=== PATIENT | male | born 1980 | race Caucasian/White ===

== ENCOUNTER 2020-09-21 14:00 | Emergency (ER) | payer OTHER ==
[~2020-09-21] VITALS: Ht 182.9 cm; Wt 82.5 kg
[~2020-09-21 14:00] MED LIST: ELIQ5TAB PO; HYDR-3713 PO; LOVE1INJ SC
--- OUTSIDE RECORDS SUMMARY | 2020-09-21 14:09 | CCD ---
Author Author [facility] Organization [facility] Address Unknown Phone Unavailable Care Team Providers Care Plastic Outfitter Name Role Phone Kaitlin Gutierrez PA-C Unavailable Unavailable BrendaKaitlin PA-C Unavailable Unavailable BrendaKaitlin PA-C Unavailable Unavailable BrendaKaitlin PA-C Unavailable Unavailable BrendaKaitlin PA-C Unavailable Unavailable BrendaKaitlin PA-C Unavailable Unavailable BrendaKaitlin PA-C Unavailable Unavailable BrendaKaitlin PA-C Unavailable Unavailable BrendaKaitlin PA-C Unavailable Unavailable Brenda, Kaitlin Gandhi PA-C Unavailable Unavailable BrendaKaitlin PA-C Unavailable Unavailable UNKNOWN, [facility] Unavailable Unavailable Makenzie RUBIO MD Unavailable Unavailable Makenzie RUBIO MD Unavailable Unavailable Makenzie RUBIO MD Unavailable Unavailable Makenzie RUBIO MD Unavailable Unavailable Makenzie RUBIO MD Unavailable Unavailable Makenzie RUBIO MD Unavailable Unavailable Makenzie RUBIO MD Unavailable Unavailable Makenzie RUBIO MD Unavailable Unavailable Makenzie RUBIO MD Unavailable Unavailable Makenzie RUBIO MD Unavailable Unavailable Makenzie RUBIO MD Unavailable Unavailable Makenzie RUBIO MD Unavailable Unavailable Makenzie RUBIO MD Unavailable Unavailable Makenzie RUBIO MD Unavailable Unavailable Makenzie RUBIO MD Unavailable Unavailable Makenzie RUBIO MD Unavailable Unavailable Makenzie RUBIO MD Unavailable Unavailable Makenzie RUBIO MD Unavailable Unavailable Makenzie RUBIO MD Unavailable Unavailable Makenzie RUBIO MD Unavailable Unavailable Makenzie RUBIO MD Unavailable Unavailable Makenzie RUBIO MD Unavailable Unavailable Makenzie RUBIO MD Unavailable Unavailable Makenzie RUBIO MD Unavailable Unavailable Makenzie RUBIO MD Unavailable Unavailable Makenzie RUBIO MD Unavailable Unavailable Makenzie RUBIO MD Unavailable Unavailable Makenzie RUBIO MD Unavailable Unavailable RUBIO, C VIK MD Unavailable Unavailable RUBIO, C VIK MD Unavailable Unavailable RUBIO, C VIK MD Unavailable Unavailable RUBIO, C VIK MD Unavailable Unavailable RUBIO, C VIK MD Unavailable Unavailable RUBIO, C VIK MD Unavailable Unavailable RUBIO, C VIK MD Unavailable Unavailable RUBIO, C VIK MD Unavailable Unavailable RUBIO, C VIK MD Unavailable Unavailable RUBIO, C VIK MD Unavailable Unavailable RUBIO, C VIK MD Unavailable Unavailable RUBIO, C VIK MD Unavailable Unavailable RUBIO, C VIK MD Unavailable Unavailable RUBIO, C VIK MD Unavailable Unavailable RUBIO, C VIK MD Unavailable Unavailable RUBIO, C VIK MD Unavailable Unavailable RUBIO, C VIK MD Unavailable Unavailable RUBIO, C VIK MD Unavailable Unavailable RUBIO, C VIK MD Unavailable Unavailable RUBIO, C VIK MD Unavailable Unavailable RUBIO, C VIK MD Unavailable Unavailable RUBIO, C VIK MD Unavailable Unavailable RUBIO, C VIK MD Unavailable Unavailable RUBIO, C VIK MD Unavailable Unavailable RUBIO, C VIK MD Unavailable Unavailable RUBIO, C VIK MD Unavailable Unavailable RUBIO, C VIK MD Unavailable Unavailable RUBIO, C VIK MD Unavailable Unavailable RUBIO, C VIK MD Unavailable Unavailable RUBIO, C VIK MD Unavailable Unavailable RUBIO, C VIK MD Unavailable Unavailable RUBIO, C VIK MD Unavailable Unavailable RUBIO, C VIK MD Unavailable Unavailable RUBIO, C VIK MD Unavailable Unavailable Re-disclosure Warning The records that you are about to access may contain information from federally-assisted alcohol or drug abuse programs. If such information is present, then the following federally mandated warning applies: This information has been disclosed to you from records protected by federal confidentiality rules (42 CFR part 2). The federal rules prohibit you from making any further disclosure of this information unless further disclosure is expressly permitted by the written consent of the person to whom it pertains or as otherwise permitted by 42 CFR part 2. A general authorization for the release of medical or other information is NOT sufficient for this purpose. The Federal rules restrict any use of the information to criminally investigate or prosecute any alcohol or drug abuse patient.The records that you are about to access may contain highly sensitive health information, the redisclosure of which is protected by Article 27-F of the [facility] Public Health law. If you continue you may have access to information: Regarding HIV / AIDS; Provided by facilities licensed or operated by the [facility] Office of Mental Health; or Provided by the [facility] Office for People With Developmental Disabilities. If such information is present, then the following [facility] mandated warning applies: This information has been disclosed to you from confidential records which are protected by state law. State law prohibits you from making any further disclosure of this information without the specific written consent of the person to whom it pertains, or as otherwise permitted by law. Any unauthorized further disclosure in violation of state law may result in a fine or penitentiary sentence or both. A general authorization for the release of medical or other information is NOT sufficient authorization for further disc losure. Encounters Encounter Providers Location Date Indications Data Source(s ) Outpatient Attender: VIK RUBIO MD 09/30/2020 12:00:00 AM [facility] Emergency Attender: Hiram SANCHEZCConsultant: GANGA Freed NKNOOBI 09/17/2020 04:42:00 PM EST - 09/17/2020 07:08:00 PM [facility] Patient discharged. Medications Medication Brand Name Start Date Product Form Dose Route Admi nistrative Instructions Pharmacy Instructions Status Indications Reaction Description Data Source(s) 5-325 mg 09/20/2020 12:00:00 AM EST tablet 4 TAKE ONE TABLET BY MOUTH EVERY 6 HOURS NEEDED FOR PAIN. MAX DAILY GONCALVES=4 TABLETS TAKE ONE TABLET BY MOUTH EVERY 6 HOURS NEEDED FOR PAIN. MAX DAILY GONCALVES=4 TABLETS SOLD: 09/20/2020 [facility] 40 mg/0.4 mL 09/20/2020 12:00:00 AM EST syringe 0 INJECT 80 MG SUBCUTANEOUSLY ONCE INJECT 80 MG SUBCUTANEOUSLY ONCE SOLD: 09/20/2020 [facility] Insurance Providers Payer name Policy type / Coverage type Policy ID Covered alliance party ID Covered alliance party's relationship to byers Policy Byers Plan Information [facility] [id number] SP [id number] [facility] HUMANA - O/P [id number] 18 [id number] [facility] ACTIVE DUTY [id number] SP [id number] Results ID Date Data Source [id number] 09/20/2020 01:37:00 PM [facility] [address] [place] [address] PHONE: [phone] FAX: [phone] Name .................. : KINJAL HOLLIS S Acct Number.................. : [id number] ROOM. ................. : TR-1A MR Number ................... : [id number] Stay type ............. : E/R Discharge Date......... ... : 09/17/20 Admit Date ....... .. : 09/17/20 Admit Phys .................... : BRENDA RM Date of ....... : 1980 Family Phys ................... : UNKNOWN CO Phone .................. : [phone] Age ................................ : 40 Film# .................. .:[id number] Sex ................................. : M Unsigned transcriptions are preliminary reports and do not represent a medical or legal document [place] [id number] COMPLETE:09/17/20 21:03 BA 4724 Reason(s): known DVT R post calf, on Eliquis, increased RLE pain RIGHT LOWER EXTREMITY DUPLEX DOPPLER ULTRASOUND: INDICATION: Known right calf DVT, on Eliquis with increased right lower extremity pain. FINDINGS: There is normal compressibility, augmentation and flow in the right common femoral and superficial femoral veins. The right popliteal vein demonstrates nearly occlusive thrombus that extends to the peritoneal trunk and posterior tibial vein and peroneal vein. IMPRESSION: Nearly occlusive thrombus from the popliteal vein to the calf veins. According to prior report, there was popliteal thrombus on outside imaging from [facility]. I am unsure if the extension of thrombus into the calf veins was present before or is new. There is no proximal extension past the popliteal vein. Electronically Reviewed and Signed By Levi Mena M.D. , 09/20/20 13:37, [place] Transcribe Initials: DZ , Transcribe Date: 09/17/20 22:52, Dictation Date: Copy for: BRENDA Madrigal via fax Copy for: EMERGENCY DEPT via modem Copy for: 710 MED REC DISCHARGED Page 1 of 1 Name Value Range Interpretation Code Description Data Virgen rce(s) Supporting Document(s) ID Date Data Source [id number] 09/20/2020 01:37:00 PM EST [facility] [address] [place] [address] PHONE: [phone] FAX: [phone] Name .................. : KINJAL OBRIENBASIL Whitman Acct Number.................. : [id number] ROOM. ................. : TR-1A MR Number ................... : [id number] Stay type ............. : E/R Discharge Date......... ... : 09/17/20 Admit Date ....... .. : 09/17/20 Admit Phys .................... : BRENDA RM Date of ....... : 1980 Family Phys ................... : UNKNOWN CO Phone .................. : [phone] Age ................................ : 40 Film# .................. .:[id number] Sex ................................. : M Unsigned transcriptions are preliminary reports and do not represent a medical or legal document TIBIA-FIBULA AP & LAT RT [id number] COMPLETE:09/17/20 19:02 [facility] 4725 Reason(s): Lower Leg Pain RIGHT TIBIA AND FIBULA X-RAY: INDICATION: Lower leg pain. FINDINGS: There is normal alignment and position of the bones of the right lower leg. No bony abnormalities are identified. IMPRESSION: Unremarkable right lower leg. The ankle is not adequately visualized and if there is clinical concern for an injury at the ankle, an ankle series should be considered. Examination dictated by COLT Johnson. Examination was reviewed with Levi Mena MD, radiologist at the time of this dictation. Electronically Reviewed and Signed By Levi Mena M.D. , 09/20/20 13:37, [place] Transcribe Initials: KIRSTEN , Transcribe Date: 09/17/20 22:47, Dictation Date: Copy for: BRENDA Madrigal via fax Copy for: EMERGENCY DEPT via mode Copy for: 710 MED REC DISCHARGED Page 1 of 1 Name Value Range Interpretation Code Description Data Virgen rce(s) Supporting Document(s) ID Date Data Source [id number] 09/17/2020 04:42:00 PM EST [facility] 1 OrderSheet [facility] Emergency Department [address] [place] [address] Phone #: [phone]- [phone] 09/17/2020 16:28 Patient: HOLLIS LAYTON Sex: M : 1980 Age: 40yWEIGHT:79.3 kg (S) HEIGHT:72 inches (S) BMI:23.7ALLERGIES: PenicillinsCHIEF COMPLAINT: swelling, painDIAGNOSIS: Deep venous thrombosisLAB ORDERSOrder Description Priority Entered Acknowledged InitialedCBC w Diff STAT 16:48 09/17/2020 16:52 Kayla GREGORY; Amberly RNCMP STAT 16:48 09/17/2020 16:52 Kayla GREGORY; Amberly RNPT/PTT STAT 16:48 09/17/2020 16:52 Kayla GREGORY; Amberly RNCOVID-19 CAH (Not STAT 18:39 09/17/2020 Cancelled: Patient Refusal 19:13 DorisSymptomatic as Hiram GREGORY; Amberly RNDefined by [facility])(09/17/20) (Not FirstTest) (Hospitalized)(Not ) (NotResident inCongregate CareSetting) (NotEmployed inHealthcare Setting)DIAGNOSTIC STUDY ORDERSOrder Description Priority Entered Acknowledged InitialedUS Lower Ext STAT 16:48 09/17/2020 17:16 DorisVenous Right Hiram GREGORY; Amberly RN(Oxygen?(No)) Reason for Study: known DVT R post calf, on eliquis, increased RLE painTibia Fibula AP And STAT 16:49 09/17/2020 16:53 DorisLAT Right Hiram GREGORY; Amberly RN(Oxygen?(No)) Reason for Study: Lower Leg PainMEDICATION/IV/DRIP/FLUID ORDERSOrder Description Priority Entered Acknowledged Initialed 2 OrderSheet [facility] Emergency Department [address] [place] [address] Phone #: ext- [phone] 09/17/2020 16:28 Patient: HOLLIS LAYTON Sex: M : 1980 Age: 40yVicodin (5-325mg) 18:21 09/17/2020 Cancelled: Patient Refusal 18:36 DorisPO 1 tab (HIGH Hiram GREGORY; Amberly RNALERTMEDICATION)Percocet PO 1 tab 18:36 09/17/2020 18:39 Kayla(HIGH ALERT Hiram GREGORY; Amberly RNMEDICATION)GENERAL ORDERSOrder Description Priority Entered Acknowledged Initialed[Electronically signed by Kayla Gaming RN (19:14 09/17/2020)][Electronically signed by Hiram Gutierrez (19:17 09/17/2020)][Electronically locked by Kayla Gaming RN (19:14 09/17/2020)] Name Value Range Interpretation Code Description Data Virgen rce(s) Supporting Document(s) ID Date Data Source [id number] 09/17/2020 04:42:00 PM [place] [address] Medication Reconciliation Report [facility] Emergency Department [address] [place] [address] Phone #: ext- [phone] 09/17/2020 16:28 Patient: HOLLIS LAYTON Sex: M : 1980 Age: 40yWeight: 79.3 kgHeight/Length: 72 in.BMI: 23.7ALLERGIES: PenicillinsThe patient's Home Medications are listed below:THE FOLLOWING MEDICATIONS NEED TO BE RECONCILED: Eliquis Oral (5 mg) 2 tablets, dailyThe source(s) of the original Home Medication information:Not obtained.The following Medications were given to the patient in the Emergency Department:Percocet [PO] PO 1 tab, administered: 18:39 09/17/2020The following Medications were prescribed to the patient:None. Name Value Range Interpretation Code Description Data Virgen rce(s) Supporting Document(s) ID Date Data Source [id number] 09/17/2020 04:42:00 PM EST [facility] 1 Medication Administration Record [facility] Emergency Department [address] [place] [address] Phone #: ext- [phone] 09/17/2020 16:28 Patient: HOLLIS LAYTON Sex: M : 1980 Age: 40yWeight: 79.3 kgHeight/Length: 72 inBMI: 23.7ALLERGIES: Penicillins Date/Time Medication Administered Medication OrderedGiven PERCOCET [PO] Percocet PO 1 tab (HIGH ALERT18:39 09/17/2020 (OXYCODONE- ACETAMINOPHEN) MEDICATION)Kayla Gaming RN Dose: 1 tab 5/325 mg Tablets PO Name Value Range Interpretation Code Description Data Virgen rce(s) Supporting Document(s) ID Date Data Source [id number] 09/17/2020 04:42:00 PM EST [facility] 1 General Instructions [facility] Emergency Department [address] [place] [address] Phone #: ext- [phone] 09/17/2020 16:28 Patient: HOLLIS LAYTON Sex: M : 1980 Age: 40yChronic deep venous thrombosis of the right popliteal vein (? worsening DVT, and new DVT on eliquis, hxFactor V Leyden disease).INSTRUCTIONSAMA warnings: Time of assessment: 18:55 09/17/2020. Oriented to person, place, and time. Givesappropriate answers and rational expl anation of refusal of care. No indication for involuntary commitmentis present, signs of psychosis, auditory hallucinations, delusional thinking or suicidal ideations. No slurredspeech, tangential thinking, visual hallucinations or homicidal ideations. Speaks coherently. Abstractthinking intact.Clinical Impression: the patient has the capacity to make decisions regarding the medical care offered.Relevant issues reviewed and discussed with the patient. Aware of suspected diagnosis suggested byscreening exam (DVT RLE). The suspected diagnosis, based upon the initiated medical screening exam,is ? worsening and possibly new DVT RLE and has been discussed with the patient. Acknowledgesunderstanding of the reasons for recommendations regarding medical treatment, medical tests,procedures, admission to facility, transfer to other medical facility and further observation. Therecommended medical care being refused is transfer for evaluation of ? worsening and new DVT RLE andhas been discussed with the patient. The risks of refusing recommended care that were disclosed andacknowledged are , quadriplegia, paraplegia, permanent mental impairment, loss of limb, loss ofsexual function and loss of current lifestyle. Discharge instructions were provided to the patient.REFUSAL OF CARE STATEMENT (patient to review and sign in discharge instructions):I have read this paragraph. I understand that a doctor at this hospital wants to give me certain medicalcare. The doctor explained that care to me, and I understand what that care is. The doctor also explainedto me what could happen to me if I leave here without having that care, and I understand what he said. Iknow that I am welcome to return to this hospital at any time to receive the recommended care or any othercare that I may need at any time, regardless of my ability to pay for such care.(Electronically signed by COLT Galo 09/17/2020 19:17) 2 General Instructions [facility] Emergency Department [address] [place] [address] Phone #: ext- [phone] 09/17/2020 16:28 Patient: HOLLIS LAYTON Sex: M : 1980 Age: 40y Name Value Range Interpretation Code Description Data Virgen rce(s) Supporting Document(s) ID Date Data Source [id number] 09/17/2020 04:42:00 PM EST [facility] 1 Clinical Report - Nurses [facility] Emergency Department [address] [place] [address] Phone #: ext- [phone] 09/17/2020 16:28 Patient: HOLLIS LAYTON Sex: M : 1980 Age: 40yTRIAGEArrived by private vehicle. Historian: patient.Acuity: LEVEL 3.Chief Complaint: RIGHT LOWER EXTREMITY PAIN and SWELLING.No injury occurred. Onset. (1 months ago). ( Pt states he was diagnosed with a DVT in his right leg on08/13/20 at [facility], was put on eliquis 10 mg daily, now he voices that 3 days ago the pain has increasedmuch and is in distress).Treatment PRESCRIPTION CLERK:(eliquis 10 mg 0530).SEPSIS SCREEN: SIRS SCREEN NEGATIVE. SEPSIS SCREEN NEGATIVE. No suspected or c onfirmedsigns of infection present.TAL COMA SCORE: 15- eyes open- spontaneous (4); best verbal response- oriented (5); bestmotor response- obeys commands (6). --16:34 09/17/20 Clemente Hernandez RN16:29 09/17/20. BP: 138/84. MAP: 102. HR: 77. RR: 16. O2 saturation: 100% on room air. Temp: 98.7 F(oral). Pain level now: 05/08. --16:34 09/17/20 Clemente Hernandez RN.Weight: 79.3 kg stated. Height/Length: 72 inches Per Patient. BMI: 23.7. --16:29 09/17/20 Clemente Hernandez RN.MedicationsEliquis Oral (Tablet 5 mg) 2 tablets, daily. --16:31 09/17/20 Clemente Hernandez RN.AllergiesPenicillins.(hives, itching) --16:31 09/17/20 Kayla Gaming RNThe following entry was struck and corrected by Kayla Gaming RN, 16:46 (09/17/20) Reason forcorrection - other(correction). Penicillins. --16:31 09/17/20 Clemente Hernandez RN .PROBLEMS:DVT - Deep Venous Thrombosis: Onset 08/12/2020.Factor V Leiden mutation. --16:46 09/17/20 Kayla Gaming RNThe following entry was modified by Kayla Gaming RN, 16:46 09/17/20 2 Clinical Report - Nurses [facility] Emergency Department [address] [place] [address] Phone #: ext- [phone] 09/17/2020 16:28 Patient: HOLLIS LAYTON Sex: Jhon : 1980 Age: 40y DVT - Deep Venous Thrombosis. --16:31 09/17/20 Clemente Hernandez RN. ADDITIONAL SURGERIES: no known surgeries. History PAST MEDICAL HX: Tetanus status: up-to-date. Immunizations: up-to-date. SOCIAL HX: Never smoker. Occasional alcohol use. No drug use. He was offered HIV testing but declined and hepatitis C testing but declined. He has not traveled outside the [place] Infectious disease exposure: No infectious disease exposure. The patient was not exposed to Coronavirus. SELF HARM ASSESSMENT: Self harm assessment was performed. The patient answered "no" to the question(s) "Have you recently felt down, depressed, or hopeless?", "Do you have thoughts of harming or killing y ourself?", "Do you have a plan for harming or killing yourself?", "Have you recently had thoughts about harming or killing others?", "Do you have any dangerous items in your possession?", "Have you noticed less interest or pleasure in doing things?", "Are you here because you tried to hurt yourself?" and "Have you ever tried to hurt yourself before today?". ABUSE ASSESSMENT: No report of abuse. NUTRITIONAL RISK ASSESSMENT: The nutritional risk assessment revealed no deficiencies. FUNCTIONAL ASSESSMENT: Functional assessment: no impairments noted. LEARNING NEEDS ASSESSMENT: The learning needs assessment revealed no barriers. FALL RISK ASSESSMENT: Fall risk assessment completed. No risk factors identified. SKIN INTEGRITY ASSESSMENT: Skin integrity risk assessment completed. No skin integrity risk identified. --16:34 09/17/20 Clemente Hernandez RN. Interventions To treatment room. --16:34 09/17/20 Clemente Hernandez RN.PHYSICAL PUVJYPNNTB91:40 09/17/20. Ambulatory to room.GENERAL / NEURO / PSYCH: Oriented X 4. Alert. Appears in no acute distress.EXTREMITIES: Extremity pulses are within normal limits. Extremities exhibit normal ROM.Neuro-vascular status intact to the extremity. No lower extremity edema. Normal gait. Right leg:tenderness.SKIN: Skin intact. Skin is warm and dry. --16:44 09/17/20 Kayla Gaming RN.NURSING PROGRESS NOTES16:44 09/17/20. Patient gowned. Two patient identifiers checked. Call light placed in reach. Side rails 3 Clinical Report - Nurses [facility] Emergency Department [address] [place] [address] Phone #: ext- [phone] 09/17/2020 16:28 Patient: HOLLIS LAYTON Sex: M : 1980 Age: 40y up. Bed placed in lowest position. Brakes of bed on. Patient ready for evaluation- PA notified. --16:44 09/17/20 Kayla Gaming RN 16:54 09/17/20. Patient transported to radiology by wheelchair with mask and vasc tech. --16:54 09/17/20 Kayla Gaming RN 16:58 09/17/20. Patient returned from radiology by wheelchair with mask and vasc tech. --16:58 09/17/20 Kayla Gaming RN 17:30 09/17/20. ( Bedside Ultrasound being performed). --18:06 09/17/20 Kayla Gaming RN 18:02 09/17/20. ( Bedside Ultrasound completed). --18:06 09/17/20 Kayla Gaming RN 18:10 09/17/20. GENERAL / NEURO / PSYCH: The patient reports pain that is located in the right lower leg is still present and worsening and currently severe. --19:08 09/17/20 Kayla Gaming RN 18:39 09/17/2020 Percocet (oxyCODONE-Acetaminophen) PO 5/325 mg Tablets 1 tab given. Allergies verified and confirmed 5 rights. Information reviewed with patient including reason for taking this medication, signs of allergic reaction, precautions and sedative warning. Verbalizes understanding. --18:39 09/17/20 Kayla Gaming RN 19:08 09/17/2020 Percocet PO Response: no adverse reaction pain is worsening. Symptoms have gotten worse. The patient feels worse. --19:12 09/17/20 Kayla Gaming RN.DISPOSITION / DISCHARGE 19:08 09/17/20. The patient left the Emergency Department against medical advice and without completion of treatment; (refused transfer). The patient appears to be alert, oriented x4, coherent and in no acute distress. The patient notified staff prior to leaving the department and stated is leaving (refusing transfer to [facility]). Notified the ED physician of patient departure. Prior to leaving, he was advised to return if needed. He was informed of the risks of leaving and verbalized un derstanding of these risks. Patient signed form prior to leaving. He left the Emergency Department ambulatory and via private vehicle. --19:11 09/17/20 Kayla Gaming RN 19:05 09/17/20. BP: 136/86. MAP: 102. HR: 64. RR: 14. O2 saturation: 100%. Temp: 98.7 F. Pain level now: 05/08. --19:11 09/17/20 Kayla Gaming RN.Locked/Released at 09/17/2020 19:14 by Kayla Gaming RN 4 Clinical Report - Nurses [facility] Emergency Department [address] [place] [address] Phone #: ext- [phone] 09/17/2020 16:28 Patient: HOLLIS LAYTON Sex: M : 1980 Age: 40y Name Value Range Interpretation Code Description Data Virgen rce(s) Supporting Document(s) ID Date Data Source [id number] 09/17/2020 04:42:00 PM EST [facility] 1 Clinical Report - Physicians/Mid Levels [facility] Emergency Department [address] [place] [address] Phone #: ext- [phone] 09/17/2020 16:28 Patient: HOLLIS LAYTON Sex: M : 1980 Age: 40y Time Seen: 16:32 09/17/2020. Arrived- By private vehicle. Historian- patient. Disposition decision: 18:55 09/17/2020.HISTORY OF PRESENT ILLNESS Chief Complaint: LOWER EXTREMITY PAIN and SWELLING. This started several days ago and 1 mo ago; Seen at [facility] 1 mo ago for acute onset R calf pain, states US there found DVT, placed on eliquis 10 mg PO daily, being worked up by Hem/onc and states he has Factor V Leyden disease, states he has increased pain to R posterior calf region over past several days. Compliant with eliquis. No chest pain or SOB. Severity is described as being moderate. It has become recently worse. The quality is noted to be aching. No radiation. Modifying factors- worsened by walking. Symptoms located in the area of the right leg. The patient has not had redness. No swelling, bladder dysfunction, bowel dysfunction, sensory loss or motor loss. He has had difficulty walking. Patient denies an injury. Similar symptoms previously. Patient has had similar symptoms once. Recent medical care: The patient was seen recently at another facility in the emergency department.REVIEW OF SYSTEMSNo cough, chest pain, difficulty breathing, fever or skin rash. No enlarged lymph nodes, neck pain, backpain, headache or blurred vision. No sore throat, abdominal pain, vomiting, diarrhea or difficulty withurination. No bloody stools.PAST HISTORYSee nurses notes. Problems: DVT - Deep Venous Thrombosis. Factor V Leiden mutation. Additional Surgeries: no known surgeries. Medications: Eliquis Oral (Tablet 5 mg) 2 tablets, daily. Allergies: Penicillins.(hives, itching).SOCIAL HISTORYNever smoker. Occasional alcohol use. No drug use. No recent travel. 2 Clinical Report - Physicians/Mid Levels [facility] Emergency Department [address] [place] [address] Phone #: ext- [phone] 09/17/2020 16:28 Patient: HOLLIS LAYTON Sex: M : 1980 Age: 40yADDITIONAL NOTESThe nursing notes have been reviewed with agreement regarding the chief complaint, HPI, ROS, PMH andpatient medications and allergies.PHYSICAL EXAMVital Signs: 09/17/2020 16:29 BP: 138/84. MAP: 102. HR: 77. RR: 16. O2 saturation: 100% on room air.Temp: 98.7 F. Pain level now: 05/08. Have been reviewed as normal and appear to be correct. Bloodpressure normal. Mean arterial pressure- normal. Heart rate normal. Respiratory rate normal.Temperature normal. Oxygen saturation normal.Appearance: Alert. Oriented X3. No acute distress.Eyes: Pupils equal, round and reactive to light. Eyes normal inspection.ENT: Ears normal. Nose normal. Pharynx normal.Neck: Normal inspection. Neck supple.CVS: Normal heart rate and rhythm. Heart sounds normal.Respiratory: No respiratory distress. Painless inspiration. Breath sounds normal.Abdomen: Soft and nontender. No organomegaly.Back: Normal inspection. No tenderness. ROM normal.Skin: Skin intact. Skin warm and dry. Normal skin color. Normal skin turgor.Extremities: Right leg: moderate tendern ess located in the upper and mid leg. No erythema, swelling orecchymosis. Lower extremities exhibit normal ROM. No lower extremity edema. Extremities otherwisenegative.Gait: Gait not tested due to pain.Neuro: Oriented X 3. No motor deficit. No sensory deficit. Reflexes normal.LABS, X-RAYS, AND EKGLower Extremity Sonography: popliteal and calf vein DVT. Nearly occlusive. No direct comparison, butprevious report states prior popliteal vein DVT. Unsure if calf vein DVT is new. Study type: utilized duplexsonography. The exam was performed by a fire protection engineering technician. The study was independently viewed by me andinterpreted by the radiologist and contemporaneously by me. Interpretation time: 18:22 09/17/2020.Laboratory Tests: Laboratory tests have been ordered, with results reviewed and considered in themedical decision making process. CBC w Diff: (VICKIE: 09/17/2020 17:11) ( MsgRcvd 09/17/2020 17:28) Final results Test Result Flag Units (Reference) CBC W/AUTOMATED DIFF COMPLETE BLOOD COUNT WBC 3.8 L 10/uL (4.2 - 11.0) RBC 4.39 L 10/uL (4.50 - 6.30) HEMOGLOBIN 13.4 L g/dL (14.0 - 16.0) HEMATOCRIT 40.6 L % (41.0 - 51.0) MCV 92.5 fL (80.0 - 94.0) MCH 30.5 pg (27.0 - 34.0) MCHC 33.0 g/dL (31.0 - 36.0) RDW 13.9 % (11.5 - 14.8) PLATELETS 190 10/uL (150 - 450) MPV 8.8 fL (7.4 - 10.4) NEUT 55.8 % (37.0 - 80.0) LYMPH 34.6 % (25.0 - 40.0) 3 Clinical Report - Physicians/Mid Levels [facility] Emergency Department [address] [place] [address] Phone #: ext- [phone] 09/17/2020 16:28 Patient: HOLLIS LAYTON Sex: M : 1980 Age: 40y MONO 6.8 % (3.0 - 8.0) EOS 1.8 % (0.0 - 7.0) BASO 1.0 % (0.0 - 2.0) %IG 0.0 % (0.0 - 0.0) %NRBC 0.0 % (0.0 - 0.0) #NEUT 2.12 10/uL (2.00 - 6.90) #LYMPH 1.32 10/uL (0.60 - 3.40) #MONO 0.26 10/uL (0.00 - 0.90) #EOS 0.07 10/uL (0.00 - 0.70) #BASO 0.04 10/uL (0.00 - 0.20) #IG 0.00 10/uL (0.00 - 0.10) #NRBC 0.00 10/uL (0.00 - 0.00) MANUAL DIFF NOT INDICATED RBC MORPH NOT INDICATEDCMP: (VICKIE: 09/17/2020 17:11) ( MsgRcvd 09/17/2020 17:47) Final results Test Result Flag Units (Reference) COMPREHENSIVE METABOLIC PANEL COMPREHENSIVE METABOLIC PANEL SODIUM 136 mEq/L (134 - 153) POTASSIUM 3.5 L mEq/L (3.6 - 5.0) CHLORIDE 101 mEq/L (98 - 107) CO2 30 MEQ/L (22 - 30) GLUCOSE 191 H MG/DL (70 - 99) BUN 18 MG/DL (7 - 21) CREATININE 1.2 MG/DL (0.7 - 1.5) BUN/CREAT 15 (8 - 27) TOTAL PROTEIN 7.2 G/DL (6.3 - 8.2) ALBUMIN 4.3 G/DL (3.9 - 5.0) GLOBULIN 2.9 GM/DL (2.4 - 3.2) A/G RATIO 1.5 (0.8 - 2.0) CALCIUM 9.1 MG/DL (8.4 - 10.2) TOTAL BILI 0.8 MG/DL (0.2 - 1.3) ALKALINE PHOS 36 L U/L (38 - 126) SGOT/AST 26 U/L (5 - 40) SGPT/ALT 15 U/L (7 - 56) ANION GAP 5.0 L mmol/L (8.0 - 16.0) AGE 40 yrs NON-AA GFR >60 mL/min AFR AMER GFR >60 mL/min Male GFR Interprentation 20-49 yrs >60 mL/min Cakygs55-08 yrs >56 mL/min Normal 60-69 yrs >49 mL/min Normal 70-79yrs>42 mL/min Normal 80 and above >35 mL/min Normal Female GFRInterpretation 20-39 yrs >60 mL/min Normal 40-49 yrs >58 mL/minNormal 50-59 yrs >51 mL/min Normal 60-69 yrs >45 mL/min Debgxr38-38 yrs >39 mL/min Normal 80 and above >32 mL/min NormalPT/PTT: (VICKIE: 09/17/2020 17:11) ( MsgRcvd 09/17/2020 17:36) Final results Test Result Flag Units (Reference) PROTIME 13.2 SECONDS (11.0 - 15.5) INR 0.95 (0.93 - 1.23) PTT 27.2 SECONDS (24.8 - 36.7) \\BLDo\\INR INTERPRETATION\\BLDx\\ Therapeutic range for Coumadin andrelated oral anticoagulants. -International Normalized Ratio ( INR): 2.0 - 3.0 for VenousThrombosis, Pulmonary Embolus, Tissue heart valves, Acute VT Atrial Fibrillation, Valvular heart diseaseand recurrent Systemic Embolism. -International Normalized Ratio (INR): 2.5 - 3.5 forMechanical Prosthetic valve. 4 Clinical Report - Physicians/Mid Levels [facility] Emergency Department [address] [place] [address] Phone #: ext- [phone] 09/17/2020 16:28 Patient: HOLLIS LAYTON Sex: M : 1980 Age: 40y.PROGRESS AND PROCEDURESCourse of Care: 18:25 Sep 17 2020. ? new DVT RLE despite pt compliant with eliquis, hx factor V Leydendisease, awaiting call back from [facility] for transfer, hospitalist here [facility]. 18:45 Sep 17 2020. No call back from [facility], attempting [place]. 18:57 Sep 17 2020. Pt at this time wishes to leave AMA and proceed to [facility] himself, sates he does not want to leave his car in hospital parking lot. Explained risks of leaving AMA to include possible , pt encouraged to return to ED at earliest convenience.CLINICAL IMPRESSION Chronic deep venous thrombosis of the right popliteal vein (? worsening DVT, and new DVT on eliquis, hx Factor V Leyden disease).INSTRUCTIONS AMA warnings: Time of assessment: 18:55 09/17/2020. Oriented to person, place, and time. Gives appropriate answers and rational explanation of refusal of care. No indication for involuntary commitment is present, signs of psychosis, auditory hallucinations, delusional thinking or suicidal ideations. No slurred speech, tangential thinking, visual hallucinations or homicidal ideations. Speaks coherently. Abstract thinking intact. Clinical Impression: the patient has the capacity to make decisions regarding the medical care offered. Relevant issues reviewed and discussed with the patient. Aware of suspected diagnosis springer ggested by screening exam (DVT RLE). The suspected diagnosis, based upon the initiated medical screening exam, is ? worsening and possibly new DVT RLE and has been discussed with the patient. Acknowledges understanding of the reasons for recommendations regarding medical treatment, medical tests, procedures, admission to facility, transfer to other medical facility and further observation. The recommended medical care being refused is transfer for evaluation of ? worsening and new DVT RLE and has been discussed with the patient. The risks of refusing recommended care that were disclosed and acknowle dged are , quadriplegia, paraplegia, permanent mental impairment, loss of limb, loss of sexual function and loss of current lifestyle. Discharge instructions were provided to the patient. REFUSAL OF CARE STATEMENT (patient to review and sign in discharge instructions): I have read this paragraph. I understand that a doctor at this [facility] wants to give me certain medical care. The doctor explained that care to me, and I understand what that care is. The doctor also explained to me what could happen to me if I leave here without having that care, and I understand what he said. I know that I am welcome to return to this [facility] at any time to receive the recommended care or any other care that I may need at any time, regardless of my ability to pay for such care. 5 Clinical Report - Physicians/Mid Levels [facility] Emergency Department [address] [place] [address] Phone #: ext- [phone] 09/17/2020 16:28 Patient: HOLLIS LAYTON Sex: M : 1980 Age: 40y(Electronically signed by COLT Galo 09/17/2020 19:17) Name Value Range Interpretation Code Description Data Virgen rce(s) Supporting Document(s) ID Date Data Source [id number] 09/17/2020 05:47:00 PM EST [facility] Name Value Range Interpretation Code Description Data Virgen rce(s) Supporting Document(s) COMPREHENSIVE METABOLIC PANEL [facility] COMPREHENSIVE METABOLIC PANEL Sodium [Moles/volume] in Serum or Plasma 136 mEq/L 134 - 153 [facility] Potassium [Moles/volume] in Serum or Plasma 3.5 mEq/L 3.6 - 5.0 L [facility] Chloride [Moles/volume] in Serum or Plasma 101 mEq/L 98 - 107 [facility] Carbon dioxide, total [Moles/volume] in Serum or Plasma 30 MEQ/L 22 - 30 [facility] Glucose [Mass/volume] in Serum or Plasma 191 MG/DL 70 - 99 H [facility] BUN 18 MG/DL 7 - 21 [facility] Creatinine [Mass/volume] in Serum or Plasma 1.2 MG/DL 0.7 - 1.5 [facility] BUN/CREAT 15 8 - 27 [facility] Protein [Mass/volume] in Serum or Plasma 7.2 G/DL 6.3 - 8.2 [facility] Albumin [Mass/volume] in Serum or Plasma 4.3 G/DL 3.9 - 5.0 [facility] Globulin [Mass/volume] in Serum by calculation 2.9 GM/DL 2.4 - 3.2 [facility] A/G RATIO 1.5 0.8 - 2.0 [facility] Calcium [Mass/volume] in Serum or Plasma 9.1 MG/DL 8.4 - 10.2 [facility] Bilirubin.total [Mass/volume] in Serum or Plasma 0.8 MG/DL 0.2 - 1.3 [facility] Alkaline phosphatase [Enzymatic activity/volume] in Serum or Plasma 36 U/L 38 - 126 L [facility] Aspartate aminotransferase [Enzymatic activity/volume] in Serum or Plasma 26 U/L 5 - 40 [facility] Alanine aminotransferase [Enzymatic activity/volume] in Seru m or Plasma 15 U/L 7 - 56 [facility] Anion gap 3 in Serum or Plasma 5.0 mmol/L 8.0 - 16.0 L [facility] AGE 40 yrs [facility] al NON-AA GFR >60 mL/min [facility] ital AFR AMER GFR >60 mL/min [facility] Male GFR In terprentation 20-49 yrs >60 mL/min Normal 50-59 yrs >56 mL/min Normal 60-69 yrs >49 mL/min Normal 70-79yrs >42 mL/min Normal 80 and above >35 mL/min Normal Female GFR Interpretation 20-39 yrs >60 mL/min Normal 40-49 yrs >58 mL/min Normal 50-59 yrs >51 mL/min Normal 60-69 yrs >45 mL/min Normal 70-79 yrs >39 mL/min Normal 80 and above >32 mL/min Normal ID Date Data Source [id number] 09/17/2020 05:36:00 PM [facility] Name Value Range Interpretation Code Description [facility] Supporting Document(s) Prothrombin time (PT) 13.2 SECONDS 11.0 - 15.5 [facility] INR in Platelet poor plasma by Coagulation assay 0.95 0.93 - 1. 23 [facility] aPTT in Blood by Coagulation assay 27.2 SECONDS 24.8 - 36.7 [facility] \\BLDo\\INR INTERPRETATION\\BLDx\\ Therapeutic range for Coumadin and related oral anticoagulants. - International Normalized Ratio (INR): 2.0 - 3.0 for Venous Thrombosis, Pulmonary Embolus, Tissue heart valves, Acute VT Atrial Fibrillation, Valvular heart disease and recurrent Systemic Embolism. - International Normalized Ratio (INR): 2.5 - 3.5 for Mechanical Prosthetic valve. ID Date Data Source [id number] 09/17/2020 05:28:00 PM [facility] Name Value Range Interpretation Code Description Data [facility](s) Supporting Document(s) CBC W/AUTOMATED DIFF [facility] COMPLETE BLOOD COUNT Leukocytes [#/volume] in Blood by Automated count 3.8 10^3/uL 4.2 - 1 1.0 L [facility] Erythrocytes [#/volume] in Blood by Automated count 4.39 10^6/uL 4. 50 - 6.30 L [facility] Hemoglobin [Mass/volume] in Blood 13.4 g/dL 14.0 - 16.0 L [facility] Hematocrit [Volume Fraction] of Blood by Automated count 40.6 % 4 1.0 - 51.0 L [facility] Erythrocyte mean corpuscular volume [Entitic volume] by Auto mated count 92.5 fL 80.0 - 94.0 [facility] Erythrocyte mean corpuscular hemoglobin [Entitic mass] by Automated count 30.5 pg 27.0 - 34.0 [facility] Erythrocyte mean corpuscular hemoglobin concentration [Mass/volume] by Automated count 33.0 g/dL 31.0 - 36.0 [facility] Erythrocyte distribution width [Ratio] by Automated count 13.9 % 11.5 - 14.8 [facility] Platelets [#/volume] in Blood by Automated count 190 10^3/uL 150 - 45 0 [facility] Platelet mean volume [Entitic volume] in Blood by Automated count 8.8 fL 7.4 - 10.4 [facility] Neutrophils/100 leukocytes in Blood by Automated count 55.8 % 37. 0 - 80.0 [facility] Lymphocytes/100 leukocytes in Blood by Manual count 34.6 % 25.0 - 40.0 [facility] Monocytes/100 leukocytes in Blood by Automated count 6.8 % 3.0 - 8.0 [facility] Eosinophils/100 leukocytes in Blood by Automated count 1.8 % 0.0 - 7.0 [facility] Basophils/100 leukocytes in Blood by Automated count 1.0 % 0.0 - 2.0 [facility] %IG 0.0 % 0.0 - 0.0 [facility] %NRBC 0.0 % 0.0 - 0.0 [facility] al Neutrophils [#/volume] in Blood by Automated count 2.12 10^3/uL 2.00 - 6.90 [facility] Lymphocytes [#/volume] in Blood by Automated count 1.32 10^3/uL 0.60 - 3.40 [facility] Monocytes [#/volume] in Blood by Automated count 0.26 10^3/uL 0.00 - 0.90 [facility] Eosinophils [#/volume] in Blood by Automated count 0.07 10^3/uL 0.00 - 0.70 [facility] Basophils [#/volume] in Blood by Automated count 0.04 10^3/uL 0.00 - 0.20 [facility] #IG 0.00 10^3/uL 0.00 - 0.10 [facility] #NRBC 0.00 10^3/uL 0.00 - 0.00 [facility] MANUAL DIFF NOT INDICATED [facility] RBC MORPH NOT INDICATED [facility] Procedure
--- OUTSIDE RECORDS SUMMARY | 2020-09-21 14:46 | CCD ---
Author Author [facility] Organization [facility] Address Unknown Phone Unavailable Care Team Providers Care Auto Body Service Mechanic Name Role Phone Kaitlin Gutierrez PA-C Unavailable [...] is protected by Article 27-F of the [facility] Public Health law. If you continue you may have access to information: Regarding HIV / AIDS; Provided by facilities licensed or operated by the [facility] Office of Mental Health; or Provided by the [facility] Office for People With Developmental Disabilities. If such information is present, then the following [facility] mandated warning applies: This information has been [...] law may result in a fine or custodial sentence or both. A general authorization for the release of medical or other information is NOT sufficient authorization for further disc losure. Encounters Encounter Providers Location Date Indications Data Source(s ) Outpatient Attender: VIK RUBIO MD 09/30/2020 12:00:00 AM [facility] Emergency Attender: Hiram SANCHEZCConsultant: GANGA Freed NKNOOBI 09/17/2020 04:42:00 PM EST - 09/17/2020 07:08:00 PM [facility] Patient discharged. Medications Medication Brand Name Start [...] type / Coverage type Policy ID Covered constitution party ID Covered constitution party's relationship to byers Policy Byers Plan Information [facility] ACTIVE DUTY [id number] SP [id number] [facility] [id number] SP [id number] [facility] - O/P [id number] 18 [id number] Results ID Date Data Source [id number] 09/20/2020 01:37:00 PM [facility] [address] [place] [address] PHONE: [phone] FAX: [phone] Name .................. : KINJAL HOLLIS S Acct Number.................. : [id number] ROOM. ................. : TR-1A MR Number ................... : [id number] Stay type ............. : E/R Discharge Date......... ... : 09/17/20 Admit Date ....... .. : 09/17/20 Admit Phys .................... : BRENDA RM Date of ....... : 1980 Family Phys ................... : UNKNOWN CO Phone .................. : [phone] Age ................................ : 40 Film# .................. .:[id number] Sex ................................. : M Unsigned transcriptions are preliminary reports and do not represent a medical or legal document [place] [id number] COMPLETE:09/17/20 21:03 BA 4724 Reason(s): known DVT [...] was popliteal thrombus on outside imaging from [facility]. I am unsure if the extension of [...] rce(s) Supporting Document(s) ID Date Data Source [id number] 09/20/2020 01:37:00 PM EST [facility] [address] [place] [address] PHONE: [phone] FAX: [phone] Name .................. : KINJAL OBRIENBASIL Whitman Acct Number.................. : [id number] ROOM. ................. : TR-1A MR Number ................... : [id number] Stay type ............. : E/R Discharge Date......... ... : 09/17/20 Admit Date ....... .. : 09/17/20 Admit Phys .................... : BRENDA RM Date of ....... : 1980 Family Phys ................... : UNKNOWN CO Phone .................. : [phone] Age ................................ : 40 Film# .................. .:[id number] Sex ................................. : M Unsigned transcriptions are preliminary reports and do not represent a medical or legal document TIBIA-FIBULA AP & LAT RT [id number] COMPLETE:09/17/20 19:02 [facility] Reason(s): Lower Leg Pain RIGHT TIBIA [...] rce(s) Supporting Document(s) ID Date Data Source [id number] 09/17/2020 04:42:00 PM EST [facility] 1 OrderSheet [facility] Emergency Department [address] [place] [address] Phone #: koi- [phone] 09/17/2020 16:28 Patient: HOLLIS LAYTON Sex: M [...] DorisSymptomatic as Hiram GREGORY; Amberly RNDefined by [facility])(09/17/20) (Not FirstTest) (Hospitalized)(Not ) (NotResident inCongregate CareSetting) [...] Entered Acknowledged Initialed 2 OrderSheet [facility] Emergency Department [address] [place] [address] Phone #: ext- [phone] 09/17/2020 16:28 Patient: HOLLIS LAYTON Sex: M [...] rce(s) Supporting Document(s) ID Date Data Source [id number] 09/17/2020 04:42:00 PM [place] [address] Medication Reconciliation Report [facility] Emergency Department [address] [place] [address] Phone #: ext- [phone] 09/17/2020 16:28 Patient: [...] rce(s) Supporting Document(s) ID Date Data Source [id number] 09/17/2020 04:42:00 PM EST [facility] 1 Medication Administration Record [facility] Emergency Department [address] [place] [address] Phone #: ext- [phone] 09/17/2020 16:28 Patient: HOLLIS LAYTON Sex: M : 1980 Age: 40yWeight: 79.3 kgHeight/Length: 72 inBMI: 23.7ALLERGIES: Penicillins Date/Time Medication Administered Medication OrderedGiven PERCOCET [PO] Percocet PO 1 tab (HIGH ALERT18:39 09/17/2020 (OXYCODONE- ACETAMINOPHEN) MEDICATION)Kayla Gaming RN Dose: 1 tab 5/325 mg Tablets PO Name Value Range Interpretation Code Description Data Virgen rce(s) Supporting Document(s) ID Date Data Source [id number] 09/17/2020 04:42:00 PM EST [facility] 1 General Instructions [facility] Emergency Department [address] [place] [address] Phone #: ext- [phone] 09/17/2020 16:28 Patient: [...] 09/17/2020 19:17) 2 General Instructions [facility] Emergency Department [address] [place] [address] Phone #: ext- [phone] 09/17/2020 16:28 Patient: HOLLIS LAYTON Sex: M : 1980 Age: 40y Name Value Range Interpretation Code Description Data Virgen rce(s) Supporting Document(s) ID Date Data Source [id number] 09/17/2020 04:42:00 PM EST [facility] 1 Clinical Report - Nurses [facility] Emergency Department [address] [place] [address] Phone #: ext- [phone] 09/17/2020 16:28 Patient: HOLLIS LAYTON Sex: M : 1980 Age: 40yTRIAGEArrived by private vehicle. Historian: patient.Acuity: LEVEL 3.Chief Complaint: RIGHT LOWER EXTREMITY PAIN and SWELLING.No injury occurred. Onset. (1 months ago). ( Pt states he was diagnosed with a DVT in his right leg on08/13/20 at [facility], was put on eliquis 10 mg daily, now he voices that 3 days ago the pain has increasedmuch and is in distress).Treatment OPERATIONS SUPPORT REPRESENTATIVE:(eliquis 10 mg 0530).SEPSIS SCREEN: SIRS SCREEN NEGATIVE. [...] 2 Clinical Report - Nurses [facility] Emergency Department [address] [place] [address] Phone #: ext- [phone] 09/17/2020 16:28 Patient: HOLLIS LAYTON Sex: Jhon [...] treatment room. --16:34 09/17/20 Clemente Hernandez RN.PHYSICAL HJXCOMAWGM74:40 09/17/20. Ambulatory to room.GENERAL / NEURO / [...] 3 Clinical Report - Nurses [facility] Emergency Department [address] [place] [address] Phone #: ext- [phone] 09/17/2020 16:28 Patient: HOLLIS LAYTON Sex: M : 1980 Age: 40y up. Bed placed in lowest position. Brakes of bed on. Patient ready for evaluation- PA notified. --16:44 09/17/20 Kayla Gaming RN 16:54 09/17/20. Patient transported to radiology by wheelchair with mask and technology methodology consultant. --16:54 09/17/20 Kayla Gaming RN 16:58 09/17/20. Patient returned from radiology by wheelchair with mask and technology methodology consultant. --16:58 09/17/20 Kayla Gaming RN 17:30 09/17/20. [...] and stated is leaving (refusing transfer to [facility]). Notified the ED physician of patient departure. [...] 4 Clinical Report - Nurses [facility] Emergency Department [address] [place] [address] Phone #: ext- [phone] 09/17/2020 16:28 Patient: HOLLIS LAYTON Sex: M : 1980 Age: 40y Name Value Range Interpretation Code Description Data Virgen rce(s) Supporting Document(s) ID Date Data Source [id number] 09/17/2020 04:42:00 PM EST [facility] 1 Clinical Report - Physicians/Mid Levels [facility] Emergency Department [address] [place] [address] Phone #: ext- [phone] 09/17/2020 16:28 Patient: HOLLIS LAYTON Sex: M : 1980 Age: 40y Time Seen: 16:32 09/17/2020. Arrived- By private vehicle. Historian- patient. Disposition decision: 18:55 09/17/2020.HISTORY OF PRESENT ILLNESS Chief Complaint: LOWER EXTREMITY PAIN and SWELLING. This started several days ago and 1 mo ago; Seen at [facility] 1 mo ago for acute onset R [...] Clinical Report - Physicians/Mid Levels [facility] Emergency Department [address] [place] [address] Phone #: ext- [phone] 09/17/2020 16:28 Patient: [...] duplexsonography. The exam was performed by a lab technician. The study was independently viewed by [...] Clinical Report - Physicians/Mid Levels [facility] Emergency Department [address] [place] [address] Phone #: ext- [phone] 09/17/2020 16:28 Patient: HOLLIS LAYTON Sex: M [...] Male GFR Interprentation 20-49 yrs >60 mL/min Bkeirb97-23 yrs >56 mL/min Normal 60-69 yrs >49 mL/min Normal 70-79yrs>42 mL/min Normal 80 and above >35 mL/min Normal Female GFRInterpretation 20-39 yrs >60 mL/min Normal 40-49 yrs >58 mL/minNormal 50-59 yrs >51 mL/min Normal 60-69 yrs >45 mL/min Kfeysr51-50 yrs >39 mL/min Normal 80 and above [...] VenousThrombosis, Pulmonary Embolus, Tissue heart valves, Acute PA Atrial Fibrillation, Valvular heart diseaseand recurrent Systemic Embolism. -International Normalized Ratio (INR): 2.5 - 3.5 forMechanical Prosthetic valve. 4 Clinical Report - Physicians/Mid Levels [facility] Emergency Department [address] [place] [address] Phone #: ext- [phone] 09/17/2020 16:28 Patient: HOLLIS LAYTON Sex: M : 1980 Age: 40y.PROGRESS AND PROCEDURESCourse of Care: 18:25 Sep 17 2020. ? new DVT RLE despite pt compliant with eliquis, hx factor V Leydendisease, awaiting call back from [facility] for transfer, hospitalist here thinks [facility] 18:45 Sep 17 2020. No call back from [facility], attempting [facility] [place]. 18:57 Sep 17 2020. Pt at this time wishes to leave AMA and proceed to [facility] himself, sates he does not want to [...] I understand that a doctor at this [facility] wants to give me certain medical care. The doctor explained that care to me, and I understand what that care is. The doctor also explained to me what could happen to me if I leave here without having that care, and I understand what he said. I know that I am welcome to return to this [facility] at any time to receive the recommended care or any other care that I may need at any time, regardless of my ability to pay for such care. 5 Clinical Report - Physicians/Mid Levels [facility] Emergency Department [address] [place] [address] Phone #: ext- [phone] 09/17/2020 16:28 Patient: HOLLIS LAYTON Sex: M : 1980 Age: 40y(Electronically signed by COLT Galo 09/17/2020 19:17) Name Value Range Interpretation Code Description Data Virgen rce(s) Supporting Document(s) ID Date Data Source [id number] 09/17/2020 05:47:00 PM EST [facility] Name Value Range Interpretation Code Description Data Virgen rce(s) Supporting Document(s) COMPREHENSIVE METABOLIC PANEL [facility] COMPREHENSIVE METABOLIC PANEL Sodium [Moles/volume] in Serum or Plasma 136 mEq/L 134 - 153 [facility] Potassium [Moles/volume] in Serum or Plasma 3.5 mEq/L 3.6 - 5.0 L [facility] Chloride [Moles/volume] in Serum or Plasma 101 mEq/L 98 - 107 [facility] Carbon dioxide, total [Moles/volume] in Serum or Plasma 30 MEQ/L 22 - 30 [facility] Glucose [Mass/volume] in Serum or Plasma 191 MG/DL 70 - 99 H [facility] BUN 18 MG/DL 7 - 21 [facility] Creatinine [Mass/volume] in Serum or Plasma 1.2 MG/DL 0.7 - 1.5 [facility] BUN/CREAT 15 8 - 27 [facility] Protein [Mass/volume] in Serum or Plasma 7.2 G/DL 6.3 - 8.2 [facility] Albumin [Mass/volume] in Serum or Plasma 4.3 G/DL 3.9 - 5.0 [facility] Globulin [Mass/volume] in Serum by calculation 2.9 GM/DL 2.4 - 3.2 [facility] A/G RATIO 1.5 0.8 - 2.0 [facility] Calcium [Mass/volume] in Serum or Plasma 9.1 MG/DL 8.4 - 10.2 [facility] Bilirubin.total [Mass/volume] in Serum or Plasma 0.8 MG/DL 0.2 - 1.3 [facility] Alkaline phosphatase [Enzymatic activity/volume] in Serum or Plasma 36 U/L 38 - 126 L [facility] Aspartate aminotransferase [Enzymatic activity/volume] in Serum or Plasma 26 U/L 5 - 40 [facility] Alanine aminotransferase [Enzymatic activity/volume] in Seru m or Plasma 15 U/L 7 - 56 [facility] Anion gap 3 in Serum or Plasma 5.0 mmol/L 8.0 - 16.0 L [facility] AGE 40 yrs [facility] al NON-AA GFR >60 mL/min [facility] ital AFR AMER GFR >60 mL/min [facility] Male GFR In terprentation [...] >32 mL/min Normal ID Date Data Source [id number] 09/17/2020 05:36:00 PM [facility] Name Value Range Interpretation Code Description Data [facility] Supporting Document(s) Prothrombin time (PT) 13.2 SECONDS 11.0 - 15.5 [facility] INR in Platelet poor plasma by Coagulation assay 0.95 0.93 - 1. 23 [facility] aPTT in Blood by Coagulation assay 27.2 SECONDS 24.8 - 36.7 [facility] \\BLDo\\INR INTERPRETATION\\BLDx\\ Therapeutic range for Coumadin and related oral anticoagulants. - International Normalized Ratio (INR): 2.0 - 3.0 for Venous Thrombosis, Pulmonary Embolus, Tissue heart valves, Acute PA Atrial Fibrillation, Valvular heart disease and recurrent Systemic Embolism. - International Normalized Ratio (INR): 2.5 - 3.5 for Mechanical Prosthetic valve. ID Date Data Source [id number] 09/17/2020 05:28:00 PM [facility] Name Value Range Interpretation Code Description Data [facility](s) Supporting Document(s) CBC W/AUTOMATED DIFF [facility] COMPLETE BLOOD COUNT Leukocytes [#/volume] in Blood by Automated count 3.8 10^3/uL 4.2 - 1 1.0 L [facility] Erythrocytes [#/volume] in Blood by Automated count 4.39 10^6/uL 4. 50 - 6.30 L [facility] Hemoglobin [Mass/volume] in Blood 13.4 g/dL 14.0 - 16.0 L [facility] Hematocrit [Volume Fraction] of Blood by Automated count 40.6 % 4 1.0 - 51.0 L [facility] Erythrocyte mean corpuscular volume [Entitic volume] by Auto mated count 92.5 fL 80.0 - 94.0 [facility] Erythrocyte mean corpuscular hemoglobin [Entitic mass] by Automated count 30.5 pg 27.0 - 34.0 [facility] Erythrocyte mean corpuscular hemoglobin concentration [Mass/volume] by Automated count 33.0 g/dL 31.0 - 36.0 [facility] Erythrocyte distribution width [Ratio] by Automated count 13.9 % 11.5 - 14.8 [facility] Platelets [#/volume] in Blood by Automated count 190 10^3/uL 150 - 45 0 [facility] Platelet mean volume [Entitic volume] in Blood by Automated count 8.8 fL 7.4 - 10.4 [facility] Neutrophils/100 leukocytes in Blood by Automated count 55.8 % 37. 0 - 80.0 [facility] Lymphocytes/100 leukocytes in Blood by Manual count 34.6 % 25.0 - 40.0 [facility] Monocytes/100 leukocytes in Blood by Automated count 6.8 % 3.0 - 8.0 [facility] Eosinophils/100 leukocytes in Blood by Automated count 1.8 % 0.0 - 7.0 [facility] Basophils/100 leukocytes in Blood by Automated count 1.0 % 0.0 - 2.0 [facility] %IG 0.0 % 0.0 - 0.0 [facility] %NRBC 0.0 % 0.0 - 0.0 [facility] al Neutrophils [#/volume] in Blood by Automated count 2.12 10^3/uL 2.00 - 6.90 [facility] Lymphocytes [#/volume] in Blood by Automated count 1.32 10^3/uL 0.60 - 3.40 [facility] Monocytes [#/volume] in Blood by Automated count 0.26 10^3/uL 0.00 - 0.90 [facility] Eosinophils [#/volume] in Blood by Automated count 0.07 10^3/uL 0.00 - 0.70 [facility] Basophils [#/volume] in Blood by Automated count 0.04 10^3/uL 0.00 - 0.20 [facility] #IG 0.00 10^3/uL 0.00 - 0.10 [facility] #NRBC 0.00 10^3/uL 0.00 - 0.00 [facility] MANUAL DIFF NOT INDICATED [facility] Hospital RBC MORPH NOT INDICATED [facility] Procedure
[2020-09-21] MEDS ORDERED: ELIQ5TAB PO (15:14)
--- NOTE | 2020-09-21 15:33 | CR.PDOC ---
General Date of Consultation: Sep 21, 2020 Consultation REASON FOR CONSULTATION/CHIEF COMPLAINT: Right lower extremity DVT HISTORY OF PRESENT ILLNESS: This is a very pleasant 40-year-old patient who had a provoked DVT after a long car ride in July 2020. Ultrasound at that time revealed popliteal DVT. Subsequent ultrasound 2 days later revealed partial recannulization. These ultrasounds were done at [facility] where they do not examine the calf veins as part of the imaging studies. He also had a hypercoagulable workup and was found to have factor V Leiden. He was put on eliq uis and was doing well, but then had some increased pain in the leg and was seen at an outside hospital a few weeks ago and an imaging study was performed that showed both popliteal and tibial vein DVT. There was concern that this was a "new" DVT. I am certain that the tibial vein DVT was present when he had his original ultrasound, but because the calf veins were not examined, the findings could not be reported. The patient was then started on Lovenox. He now returns to the ER after being told that he needed to be seen again at [facility] and admitted. I think there is a lot of misinformation contributing to that recommendation. 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 From a vascular surgery position, it is okay to restart the patient on eliquis and discontinue the Lovenox. He did not have of failure of eliquis based on the imaging and his history. Pain in the leg is not uncommon, especially if the patient overexerts himself. What will help with that is continuing anticoagulation, elevation of the right lower extremity above the level of the heart at least 30 minutes 3 times a day, and wearing daily compression stockings 20-30 mmHg calf high. He can slowly resume his normal activities, but there may be days where he is more sore than others, which would indicate he may need to back off some of the activities the following day and allow himself more time for rest and elevation. The patient has appointment with hematology September 30. We will follow up with them regarding their recommendations for long-term anticoagulation. ALLERGIES: Please see below. HOME MEDICATIONS: Please see below. PAST MEDICAL HISTORY: Factor V leiden, DVT FAMILY HISTORY: No known history of bleeding or clotting disorders SOCIAL HISTORY: Patient is in the and denies history of tobacco, alcohol, or illicit drug use. REVIEW OF SYSTEMS: CONSTITUTIONAL: Denies fevers or chills HEENT: Denies vision or hearing changes CARDIOVASCULAR: Denies chest pain RESPIRATORY: Denies Shortness of breath GENITOURINARY: Denies dysuria MUSCULOSKELETAL: Positive right leg discomfort and swelling denies claudication GASTROINTESTINAL: Denies nausea vomiting diarrhea SKIN: Denies rashes NEUROLOGICAL: Denies headaches or seizures PSYCHIATRIC: Denies anxiety or depression ENDOCRINE: Denies diabetes or thyroid disease HEMATOLOGIC/LYMPHATIC: Positive factor V Adalberto ALLERGIC/IMMUNOLOGIC: Denies PHYSICAL EXAMINATION: VITAL SIGNS: Please see below. GENERAL APPEARANCE: Well-appearing, no acute distress HEENT: Normocephalic, vision grossly intact, pupils equal and reactive, TMI RESPIRATORY: Clear to auscultation bilaterally CARDIOVASCULAR: Regular rate and rhythm ABDOMEN: Soft nontender nondistended EXTREMITIES: No significant edema noted right lower extremity versus left. No erythema or skin changes noted. Calf is soft and nontender. NEUROLOGICAL: Alert and oriented 3 moves all extremities equally PSYCHIATRIC: Pleasant and cooperative LABORATORY DATA: Please see below. ASSESSMENT/PLAN: 1. Resume eliqufreddy. ALEXANDRA Lovenox. 2. Follow up in vascular surgery clinic in 3 months with repeat venous duplex right lower extremity. 3. Elevate right lower extremity above the level of the heart at least 30 minutes 3 times a day. 4. Calf high graduated compression 20-30 mmHg daily. 5. Okay for activity as tolerated. His leg is excessively sore, activity level was likely too high and a period of rest and right leg elevation is recommended. 6. If new acute lower extremity swelling occurs, recommend return to PCP or ER for evaluation for possible propagation of DVT. We appreciate the opportunity to participate in the care of this patient. Vital Signs/I&O Vital Signs Date Time Temp Pulse Resp B/P (MAP) Pulse Ox O2 Delivery O2 Flow Rate FiO2 09/21/20 14:28 16 09/21/20 14:01 99.0 60 100 Room Air Allergies Coded Allergies: Penicillins (Verified Allergy, Intermediate, HIVES, 2/22/21) Home Medications Scheduled Apixaban (Eliquis) 5 Mg Tablet, 5 MG PO BID for 30 Days, #60 (Reported) Scheduled PRN Hydrocodone/Acetaminophen (Hydrocodone-Acetamin 5-325 mg) 1 Each Tablet, 1 TAB PO Q6H PRN for PAIN for 1 Days, #4 Oxycodone HCl/Acetaminophen (Percocet 5-325 mg Tablet) 1 Each Tablet, 1 TAB PO Q6H PRN for PAIN, #20 CARLOS CHU MD Sep 21, 2020 15:33
[2020-09-21] MEDS ORDERED: PERC5TAB12 PO (15:36)
[2020-09-21 16:18] VITALS: BP 127/76
== END 2020-09-21 16:20 | disposition home or self-care (01) ==
LOC: M ED 14:00
DX: I82.401 Acute embolism and thrombosis of unspecified deep veins of right lower extremity (principal); Z88.0 Allergy status to penicillin; Z79.01 Long term (current) use of anticoagulants